=== PATIENT | male | born 1945 | race Caucasian/White ===

== ENCOUNTER 2021-02-15 13:05 | Inpatient (IN) | payer MEDICARE, SELFPAY ==
--- NOTE | ~2021-02-15 | CT_ITS ---
EXAMINATION: CT ABDOMEN AND PELVIS WITH CONTRAST CLINICAL INFORMATION: Kidney disease or renal impairment. COMPARISON: 05/03/2010 CT scan of the abdomen and pelvis. TECHNIQUE: Multidetector volumetric images were obtained from the superior aspect of the liver through the pubic symphysis following administration 85 mL of Omnipaque 350 intravenous contrast. Sagittal and coronal reformatted images were obtained on the technologist's workstation. Oral contrast: No This CT examination was performed using dose optimization techniques as appropriate, variously including the following: *Automated exposure control *Adjustment of mA and/or kV according to patient size (this includes techniques or standardized protocols for targeted exams where dose is matched to indication/reason for exam; i.e. extremities or head) *Use of iterative reconstruction technique DLP: 665 mGy-cm FINDINGS: LUNG BASES: Mild bibasilar atelectasis/scarring. No pleural or pericardial effusions. LIVER, GALLBLADDER, AND BILIARY TREE: No hepatic abnormality. Status post cholecystectomy. Mild to moderate intrahepatic and extrahepatic biliary ductal dilatation. The common hepatic duct measures up to 1.7 cm in maximum dimension. The common bile duct measures up to 1.4 cm in maximum dimension (image 38, series 6). There is tapering at the level of the pancreatic head. Several calcified densities are seen in the distal/intraluminal aspect of the common bile duct measuring up to 0.4 cm (image 46, series 6). These are seen extending to the level the ampulla. PANCREAS: Mild dilatation of the pancreatic duct up to 0.5 cm in the head without intraluminal abnormality. No significant dilatation is seen in the remainder the pancreas. No peripancreatic abnormality. SPLEEN: Unremarkable. ADRENAL GLANDS: Unremarkable. KIDNEYS AND URETERS: Unremarkable. BLADDER: Unremarkable. GASTROINTESTINAL TRACT: The stomach, small bowel and appendix are unremarkable. Mild diverticulosis is seen in the distal colon, most pronounced in the distal descending colon without surrounding abnormality. ABDOMINAL WALL: Small to moderate fat-containing umbilical hernia. LYMPH NODES: No lymphadenopathy. VASCULAR: Unremarkable. PELVIC VISCERA: Mild to moderate prostatomegaly with a volume of approximately 40 mL. OSSEOUS STRUCTURES: Mild to moderate multilevel degenerative changes, most pronounced at L4-L5. No suspicious abnormality. CT/CT abdomen pelvis w con IMPRESSION: 1. Mild to moderate intrahepatic and extra hepatic biliary ductal dilatation to the level the pancreatic head. There are several calcified intraluminal densities within the common bile duct suggesting choledocholithiasis. A definitive obstructing mass is not seen. Mild dilatation of the pancreatic duct does level may be secondary to the calculi as well. No other significant pancreatic abnormality. 2. Mild distal colonic diverticulosis without evidence for acute diverticulitis. 3. Small to moderate fat-containing umbilical hernia. 4. Mild to moderate prostatomegaly.
--- NOTE | ~2021-02-15 | FL_ITS ---
EXAMINATION: XR FLUOROSCOPY WITH IMAGES CLINICAL INFORMATION: ERCP for choledocholithiasis and dilatation of the bile ducts.. COMPARISON: CT scan abdomen and pelvis February 15, 2021 TECHNIQUE: Fluoroscopy performed by Dr. Bridges. Fluoroscopy time: 9.7 minutes DAP: 3.76 mGycm2 Images: 8 FINDINGS: Spot views show successful cannulation of the common duct. Contrast injected. The CBD is dilated. There are multiple filling defects consistent with choledocholithiasis. Balloon sweeps were made. There is stent was placed. See intraoperative report for full detail. FL/FL guidance in OR IMPRESSION: ERCP for choledocholithiasis. See intraoperative report for full detail.
[2021-02-15 14:15] VITALS: BP 140/71; PULSE 57; RESP 19; TEMP 36.6; O2SAT 98; BMI 25.1
--- NOTE | 2021-02-15 14:23 | ECG_ITS ---
Test Reason : ABD PAIN Blood Pressure : / mmHG Vent. Rate : 059 BPM Atrial Rate : 059 BPM P-R Int : 154 ms QRS Dur : 082 ms QT Int : 424 ms P-R-T Axes : 083 020 041 degrees QTc Int : 419 ms Sinus bradycardia with Premature atrial complexes Otherwise normal ECG No previous ECGs available Referred By: Generic ED Physician Electronically Signed By:ARNOLDO LALA
--- NOTE | 2021-02-15 18:23 | ED.GENADULT ---
HPI - General Adult General Chief complaint: General Medical Stated complaint: abd pain Time Seen by Provider: 02/15/21 15:49 Source: patient Mode of arrival: ambulatory Limitations: no limitations History of Present Illness HPI narrative: 75-year-old male presents with 2 days of left upper quadrant and mid abdominal pain. Noticed to be jaundiced earlier today. Has a history of partial cholecystectomy for history of gallbladder stones. Patient states to be nauseous, drank some fluids this morning but was unable to tolerate food. Onset (ago): day(s) (2) Location: abdomen Radiation: non-radiation Severity: moderate Severity scale (1-10): 7 Quality: aching Pain Consistency: constant Relieving factors: none Exacerbating factors: eating and movement Associated symptoms: fever/chills and loss of appetite Treatments prior to arrival: none Related Data Allergies Allergy/AdvReac Type Severity Reaction Status Date / Time No Known Allergies Allergy Unverified 11/04/20 13:09 Review of Systems Review of Systems: Constitutional: No Weight loss, No Fever, positive Chills, No Night Sweats, No Fatigue, No Malaise ENT/Mouth: No Hearing loss, No Ear Pain, No Nasal Congestion, No Sinus Pain, No Hoarseness, No sore throat, No Rhinorrhea, No Swallowing Difficulty Eyes: No Eye Pain, No Swelling, No Redness, No Foreign Body, No Discharge, No Vision Changes Cardiovascular: No Chest Pain, No SOB, No Dyspnea on Exertion, No Orthopnea, No Edema, No Palpitations Respiratory: No Cough, No Sputum, No Wheezing, No Smoke Exposure, No Dyspnea Gastrointestinal: Positive Nausea, no Vomiting, no Diarrhea, positive abdominal Pain, No Hematochezia, No Melena Genitourinary: no irregular bleeding, No Dysuria, No Urinary Frequency, No Hematuria, No Urinary Incontinence, No Urgency, No Flank Pain, No Urinary Flow Changes, No Hesitancy Musculoskeletal: No joint pain, No Myalgias, No Joint Swelling Skin: Positive jaundice, No Skin Lesions, No rash Neuro: No Weakness, No Numbness, No Paresthesias, No Loss of Consciousness, No Dizziness, No Headache Psych: No Anxiety/Panic, No Depression, No SI/HI/AH/VH, No Social Issues Heme/Lymph: No Bruising, No Bleeding,No Lymphadenopathy Endocrine: No Polyuria, No Polydipsia, No Temperature Intolerance Yes all other systems are reviewed and are negative [facility] Past Medical History Attestation statement: The following information was validated with the patient. Source: old records reviewed Social History Social History Advance Directives: No Physical Exam Vital Signs: Vital Signs: Last Vital Signs Temp 99.9 F 02/15/21 23:40 Pulse 68 02/15/21 23:40 Resp 16 02/15/21 23:40 BP 148/61 H 02/15/21 23:40 Pulse Ox 99 02/15/21 23:40 Body Mass Index 25.1 Appearance: Alert. Oriented X3. Moderate distress. Eyes: Pupils equal, round and reactive to light. Sclera slightly icteric ENT: Pharynx normal. Moist mucous membranes Neck: Normal inspection. Neck supple. CVS: Normal heart rate and rhythm. Pulses normal. Respiratory: No respiratory distress. Breath sounds normal. Abdomen: Soft and tender. Positive Gu[place]. Skin: Slightly jaundiced. Skin warm and dry. Normal skin turgor. Extremities: No lower extremity edema. Gait well balanced well coordinated. Neuro: No motor deficit. No sensory deficit. Cranial nerves 2-12 intact. Course Course Course Narrative: 75-year-old male presents with left upper and mid epigastric pain for approximately 48 hours. States that he noted to be a bit jaundiced over the past couple of days. Has had some nausea, but denies fevers, chills, and EtOH. Past medical history of partial cholecystectomy for prior gallstones. Will order 2 L of fluid, morphine, and CT of abdomen and pelvis with contrast. 8:14 p.m. labs pending draw. 11:[address] scan shows choledocholithiasis. Call out to Gastroenterology. 11:15 p.m. GI consult in the morning for ERCP plan is to admit to Medicine. Discussion with hospitalist, plan is to admit for choledocholithiasis. Ceftriaxone, Protonix, and morphine ordered time Consultations Consultation #1: Avery Time: 23:12 Consultation #2: Avinash Time: 23:15 Medical Decision Making Differential Diagnosis Differential Diagnosis: Pancreatitis, coli lithiasis, cholecystitis, hepatitis Medical Records Medical records reviewed: Yes I reviewed the patient's medical records. Lab Data Lab results reviewed: Yes I reviewed the patient's lab results. Result diagrams: 02/15/21 20:09 02/15/21 20:09 Labs: Lab Results 02/15/21 02/15/21 02/15/21 Range/Units 20:09 20:09 20:09 WBC 11.4 H (4.8-10.8) X10*3/uL RBC 5.21 (4.60-5.80) X10*6/uL Hgb 15.3 (14.0-18.0) g/dl Hct 43.6 (42-52) % MCV 83.7 (80-98) fL MCH 29.4 (27.0-33.0) pg MCHC 35.1 (31.0-36.0) g/dl RDW 13.2 (11.0-16.0) % Plt Count 240 (160-400) X10*3/uL MPV 11.1 (9.4-12.4) fL Immature Gran % (Auto) 0.3 (0.0-0.4) % Neut % (Auto) 80.0 H (45-73) % Lymph % (Auto) 9.5 L (20-40) % [place] % (Auto) 10.0 (2-11) % Eos % (Auto) 0.0 (0-4) % Baso % (Auto) 0.2 (0-2) % Lymph # (Auto) 1.1 L (1.2-4.9) X10*3/uL [place] # (Auto) 1.1 (0.1-1.2) X10*3/uL Eos # (Auto) 0.0 (0.0-0.4) X10*3/uL Baso # (Auto) 0.0 (0.0-0.2) X10*3/uL Abs Immat Gran (auto) 0.03 (0.00-0.03) X10*3/uL Absolute Neuts (auto) 9.1 H (2.0-8.3) X10*3/uL Absolute Nucleated RBC 0.000 (0.0-0.012) X10*3/uL Nucleated RBC % (auto) 0.0 (0.0-0.2) /100WBC Sodium 140 (135-145) mmol/L Potassium 4.0 (3.3-5.1) mmol/L Chloride 103 (96-108) mmol/L Carbon Dioxide 26 (22-29) mmol/L Anion Gap 15 (12-20) BUN 14 (9-16) mg/dL Creatinine 1.22 (0.5-1.4) mg/dL Estim Creat Clear Calc 51.5 Estimated GFR 58 Random Glucose 118 H (60-115) mg/dL Calcium 9.6 (8.4-10.2) mg/dL Total Bilirubin 10.2 H (0.0-1.0) mg/dL Direct Bilirubin 3.9 H (0.0-0.5) mg/dL AST 142 H (5-37) U/L ALT 176 H (0-40) U/L Alkaline Phosphatase 126 H (39-117) U/L Troponin I High Sens 6.0 (<3.5-35.0) ng/L Total Protein 7.6 (6.5-8.0) g/dL Albumin 4.3 (3.5-5.0) g/dL Lipase 230 H (8-78) U/L Urine Color Urine Appearance Urine pH (5.0-8.0) Ur Specific [place] (1.005-1.025) Urine Protein (NEG-TRACE) MG/DL Urine Glucose (UA) (NEG) MG/DL Urine Ketones (NEG) MG/DL Urine Blood (NEG) Urine Nitrite (NEG) Ur Leukocyte Esterase (NEG) Urine RBC (0) /HPF Urine WBC (0-4) /HPF Ur Squamous Epith Cells /LPF Urine Bacteria /LPF 02/15/21 Range/Units 22:22 WBC (4.8-10.8) X10*3/uL RBC (4.60-5.80) X10*6/uL Hgb (14.0-18.0) g/dl Hct (42-52) % MCV (80-98) fL MCH (27.0-33.0) pg MCHC (31.0-36.0) g/dl RDW (11.0-16.0) % Plt Count (160-400) X10*3/uL MPV (9.4-12.4) fL Immature Gran % (Auto) (0.0-0.4) % Neut % (Auto) (45-73) % Lymph % (Auto) (20-40) % [place] % (Auto) (2-11) % Eos % (Auto) (0-4) % Baso % (Auto) (0-2) % Lymph # (Auto) (1.2-4.9) X10*3/uL [place] # (Auto) (0.1-1.2) X10*3/uL Eos # (Auto) (0.0-0.4) X10*3/uL Baso # (Auto) (0.0-0.2) X10*3/uL Abs Immat Gran (auto) (0.00-0.03) X10*3/uL Absolute Neuts (auto) (2.0-8.3) X10*3/uL Absolute Nucleated RBC (0.0-0.012) X10*3/uL Nucleated RBC % (auto) (0.0-0.2) /100WBC Sodium (135-145) mmol/L Potassium (3.3-5.1) mmol/L Chloride (96-108) mmol/L Carbon Dioxide (22-29) mmol/L Anion Gap (12-20) BUN (9-16) mg/dL Creatinine (0.5-1.4) mg/dL Estim Creat Clear Calc Estimated GFR Random Glucose (60-115) mg/dL Calcium (8.4-10.2) mg/dL Total Bilirubin (0.0-1.0) mg/dL Direct Bilirubin (0.0-0.5) mg/dL AST (5-37) U/L ALT (0-40) U/L Alkaline Phosphatase (39-117) U/L Troponin I High Sens (<3.5-35.0) ng/L Total Protein (6.5-8.0) g/dL Albumin (3.5-5.0) g/dL Lipase (8-78) U/L Urine Color YELLOW Urine Appearance CLEAR Urine pH 6.0 (5.0-8.0) Ur Specific [place] <= 1.005 (1.005-1.025) Urine Protein NEG (NEG-TRACE) MG/DL Urine Glucose (UA) NEG (NEG) MG/DL Urine Ketones 5 (NEG) MG/DL Urine Blood 1+ H (NEG) Urine Nitrite NEG (NEG) Ur Leukocyte Esterase NEG (NEG) Urine RBC 1-4 (0) /HPF Urine WBC 1-4 (0-4) /HPF Ur Squamous Epith Cells TRACE /LPF Urine Bacteria TRACE /LPF Imaging Data CT scan - abdomen: Attestation: I personally reviewed and interpreted this imaging study as follows: Radiologist's impression: FINDINGS: LUNG BASES: Mild bibasilar atelectasis/scarring. No pleural or pericardial effusions.? LIVER, GALLBLADDER, AND BILIARY TREE: No hepatic abnormality. Status post cholecystectomy. Mild to moderate intrahepatic and extrahepatic biliary ductal dilatation. The common hepatic duct measures up to 1.7 cm in maximum dimension. The common bile duct measures up to 1.4 cm in maximum dimension (image 38, series 6). There is tapering at the level of the pancreatic head. Several calcified densities are seen in the distal/intraluminal aspect of the common bile duct measuring up to 0.4 cm (image 46, series 6). These are seen extending to the level the ampulla. PANCREAS: Mild dilatation of the pancreatic duct up to 0.5 cm in the head without intraluminal abnormality. No significant dilatation is seen in the remainder the pancreas. No peripancreatic abnormality.? SPLEEN: Unremarkable.? ADRENAL GLANDS: Unremarkable.? KIDNEYS AND URETERS: Unremarkable. BLADDER: Unremarkable.? GASTROINTESTINAL TRACT: The stomach, small bowel and appendix are unremarkable. Mild diverticulosis is seen in the distal colon, most pronounced in the distal descending colon without surrounding abnormality. ABDOMINAL WALL: Small to moderate fat-containing umbilical hernia. LYMPH NODES: No lymphadenopathy. VASCULAR: Unremarkable. PELVIC VISCERA: Mild to moderate prostatomegaly with a volume of approximately 40 mL. OSSEOUS STRUCTURES: Mild to moderate multilevel degenerative changes, most pronounced at L4-L5. No suspicious abnormality. CT/CT abdomen pelvis w con IMPRESSION: 1. Mild to moderate intrahepatic and extra hepatic biliary ductal dilatation to the level the pancreatic head. There are several calcified intraluminal densities within the common bile duct suggesting choledocholithiasis. A definitive obstructing mass is not seen. Mild dilatation of the pancreatic duct does level may be secondary to the calculi as well. No other significant pancreatic abnormality. 2. Mild distal colonic diverticulosis without evidence for acute diverticulitis. 3. Small to moderate fat-containing umbilical hernia. 4. Mild to moderate prostatomegaly. ECG Data Attestation: I personally reviewed and interpreted this ECG as follows: Prior ECG tracings: not available for review Interpretation: Vent. Rate : 059 BPM ? ? Atrial Rate : 059 BPM ?? P-R Int : 154 ms? QRS Dur : 082 ms ? ? QT Int : 424 ms ? ? ? P-R-T Axes : 083 020 041 degrees ?? QTc Int : 419 ms ? Sinus bradycardia with Premature atrial complexes Otherwise normal ECG No previous ECGs available DD/ [id number] Critical Care Time Critical Care Time Critical Care Time: Yes Total Critical Care Time: 45 Attestation: I have personally provided critical care time exclusive of time spent on separately billable procedures. Time includes review of laboratory data, radiology results, discussion with consultants, and monitoring for potential decompensation. Interventions were performed as documented. Discharge Plan Discharge Clinical Impression: Choledocholithiasis Patient Disposition: Admitted As Inpatient
[2021-02-15 20:26] LABS: MANUAL DIFF FLAG NO
[2021-02-15 20:27] LABS: Basophils Percent Auto 0.2 % (0-2); Hematocrit 43.6 % (42-52); Hemoglobin 15.3 g/dl (14.0-18.0); Imm Gran Abs Auto 0.03 X10*3/uL (0.00-0.03); Imm Gran Pct Auto 0.3 % (0.0-0.4); Lymphocytes Absolute Auto 1.1 X10*3/uL (1.2-4.9); Lymphocytes Percent Auto 9.5 % (20-40); Mean Corpuscular HGB Conc 35.1 g/dl (31.0-36.0); Mean Corpuscular Hemoglobin 29.4 pg (27.0-33.0); Mean Corpuscular Volume 83.7 fL (80-98); Mean Platelet Volume 11.1 fL (9.4-12.4); Monocytes Absolute Auto 1.1 X10*3/uL (0.1-1.2); Neutrophils Absolute Auto 9.1 X10*3/uL (2.0-8.3); Platelet Count 240 X10*3/uL (160-400); Red Blood Count 5.21 X10*6/uL (4.60-5.80); Red Cell Distribution Width 13.2 % (11.0-16.0); White Blood Count 11.4 X10*3/uL (4.8-10.8)
[2021-02-15 20:42] LABS: Alanine Aminotransferase 176 U/L (0-40); Albumin Level 4.3 g/dL (3.5-5.0); Alkaline Phosphatase 126 U/L (39-117); Anion Gap 15 (12-20); Aspartate Amino Transferase 142 U/L (5-37); Bilirubin Direct 3.9 mg/dL (0.0-0.5); Bilirubin Total 10.2 mg/dL (0.0-1.0); Blood Urea Nitrogen 14 mg/dL (9-16); Calcium 9.6 mg/dL (8.4-10.2); Carbon Dioxide 26 mmol/L (22-29); Chloride 103 mmol/L (96-108); Creatinine Clr Calc Pharmacy 51.5; Estimated Glomerular Filt Rate 58; Glucose Random 118 mg/dL (60-115); Lipase 230 U/L (8-78); Sodium 140 mmol/L (135-145); Total Protein 7.6 g/dL (6.5-8.0)
[2021-02-15] MEDS: 0.9 % Sodium Chloride 1,000 ML 999 ML IVCONT ×2 (21:03→22:29)
[2021-02-15 21:06] VITALS: RESP 16
--- NOTE | 2021-02-15 21:07 | PC.NURSE ---
NS UP AND RUNNING, DAUGHTER REFUSING MORPHINE AND ZOFRAN FOR PT ONLY WANTS PT TO HAVE NS BECAUSE OF DEHYDRATION. MORPHINE WITNESSED WASTE.
--- NOTE | 2021-02-15 21:27 | PC.NURSE ---
LABS RESULTED AND PT AWAITING FOR CT. NS UP AND RUNNING, SITE INTACT.
[2021-02-15] MEDS: iohexoL 350 MG/ML 100 ML INFUS..BTL IV (21:40)
[2021-02-15 22:00] VITALS: BP 142/57; PULSE 70; RESP 16; TEMP 37.6; O2SAT 99
[2021-02-15 22:28] LABS: Appearance Urine CLEAR; Color Urine YELLOW; Glucose Urine UA NEG (NEG); Leukocyte Esterase Urine NEG (NEG); Nitrite Urine NEG (NEG); Specific Gravity - Urine <= 1.005 (1.005-1.025); UACC Culture Trigger NO; Urine Blood 1+ (NEG); Urine Ketones 5 MG/DL (NEG); Urine Protein NEG (NEG-TRACE)
[2021-02-15 23:15] LABS: Bacteria Urine TRACE /LPF; Squamous Epithelial Cell Urine TRACE /LPF
[2021-02-15 23:40] VITALS: BP 148/61; PULSE 68; RESP 16; TEMP 37.7; O2SAT 99
[2021-02-16] VITALS (20 sets, daily range): BP systolic 113–149; BP diastolic 55–78; PULSE 51–77; RESP 15–18; TEMP 36.3–37.3; O2SAT 92–99
[2021-02-16 00:11] LABS: COVID-19 Test Negative (Negative)
[2021-02-16] MEDS: Pantoprazole Sodium 40 MG/10 ML VIAL IVPUSH (00:28)
[2021-02-16] MEDS: cefTRIAXone sodium 1 GM in 0.9 % Sodium Chloride 50 ML IV ×2 (00:29→22:26)
--- NOTE | 2021-02-16 00:56 | PC.NURSE ---
hospitalist in room for eval. pt medicated as per emar. pt's daughter refusing pt to have any doses of morphine which was witnessed waste by Zamzam Saleh RN. pt being admitted and awaiting for further orders.
[2021-02-16] MEDS: metroNIDAZOLE/NS 500 MG/100 ML PIGGYBACK 100 MG IV ×3 (01:00→22:33)
[2021-02-16] MEDS: Lactated Ringers 1,000 ML 80 ML IVCONT ×2 (01:47→20:28)
--- NOTE | 2021-02-16 02:30 | PC.NURSE ---
CALL YU IN ROOM IS NOT WORKING AND WAS REMOVED FROM WALL. DAUGHTER CONCERNED ABOUT LEAVING HER FATHER W/O A CALL YU. PT MOVED TO ROOM #18 FOR SAFETY. DAUGHTER IN RECLINER CHAIR FOR COMFORT. PT MEDICATED PER EMAR. PT REMAINS ALERT, RESPIRATIONS EASY, N/L. SKIN W/D. PT IN NAD. PT AWAITING FOR ROOM ASSIGNMENT.
--- NOTE | 2021-02-16 06:34 | PM.IMHP ---
History of Present Illness Date of Service: 02/16/21 Chief Complaint: Abdominal pain 75-year-old male with no significant past medical history who presents to the hospital with complaints of abdominal pain that started about 1 day ago. Patient reports that he was at home when he started having epigastric pain radiating to the right upper quadrant associated with nausea, pain is 8/10, constant, in worsens with eating and drinking food, improved with pain medication given in the ED. associated with dark urine, jaundice. Patient denies any chest pain, no shortness of breath, no headache or change in vision, no palpitations. No urinary symptoms and no lower extremity edema. No weakness numbness or tingling. On arrival to the ED patient hemodynamically stable with no significant abnormal vitals except for a temp of 99.9? Labs are significant for WBC count of 11.4, total bili of 10.2, direct bili of 3.9, AST of 142, ALT of 176, alk-phos of 126, lipase of 230, UA negative. COVID-[address] shows [id number] intrahepatic and extrahepatic biliary ductal dilatation to the level of the pancreas head. There are several calcified intraluminal densities within the common bile duct suggesting choledocholithiasis. Mild dilatation of the pancreatic duct at this level may be secondary to the calculus as well. Diverticulosis with no diverticulitis. Gastroenterology was consulted, patient will be admitted for further management and ERCP in a.m. Review of Systems Review of Systems: Yes all other systems are reviewed and are negative [facility] Medical History (Updated 02/16/21 @ 06:44 by Jose Da Silva MD) No pertinent past medical history Pertinent family history: Denies any family history Surgical History History of cholecystectomy Social History Advance Directives: No Meds Allergies Allergy/AdvReac Type Severity Reaction Status Date / Time No Known Allergies Allergy Unverified 11/04/20 13:09 Active Medications: Current Medications Acetaminophen (Acetaminophen 325 Mg Tablet) 650 mg PO Q6H PRN PRN Reason: Pain, Mild (Pain Scale 1-3) Docusate Sodium (Docusate Sodium 100 Mg Capsule) 100 mg PO DAILY PRN PRN Reason: Constipation Ceftriaxone Sodium 1 gm/ (Sodium Chloride) 50 mls @ 100 mls/hr IV Q24H [facility] Metronidazole (Flagyl) 500 mg in 100 mls @ 100 mls/hr IV Q8H [facility] Last Admin: 02/16/21 05:52 Dose: 100 mls/hr Documented by: Lactated Ringer's (Lr) 1,000 mls @ 80 mls/hr IVCONT .[id number] [facility] Last Infusion: 02/16/21 03:52 Dose: Infused Documented by: Morphine Sulfate (Morphine Sulfate 4 Mg/Ml Cartridge) 4 mg IVPUSH Q4H PRN; Protocol PRN Reason: Pain, Severe (Pain Scale 7-10) Ondansetron HCl (Ondansetron Hcl 4 Mg/2 Ml Vial) 4 mg IVPUSH Q8H PRN PRN Reason: Nausea and Vomiting Oxycodone HCl (Oxycodone Hcl Immed Release 5 Mg Tablet) 5 mg PO Q4H PRN PRN Reason: Pain, Severe (Pain Scale 7-10) Sodium Chloride (0.9 % Sodium Chloride Flush 3 Ml Syringe) 3 ml IVFLUSH QSHIFT [facility] Last Admin: 02/16/21 03:43 Dose: Not Given Documented by: Home Medications Medication Instructions Recorded Confirmed Last Taken Type No Known Home Meds 02/16/21 02/16/21 Unknown History Physical Exam Vital Signs and Narrative: Vital Signs: Last Vital Signs Temp 98.5 F 02/16/21 05:49 Pulse 62 02/16/21 05:49 Resp 16 02/16/21 05:49 BP 144/65 H 02/16/21 05:49 Pulse Ox 97 02/16/21 05:49 Body Mass Index 25.1 Const: General: cooperative and no acute distress Orientation/consciousness: patient oriented x3 Eyes: General: appearance normal, both eyes and all related structures Pupils: Equal, round and reactive pupils present Resp: Effort & Inspection: normal respiratory effort Auscultation: clear to auscultation bilaterally Cardio: Rate: regular rate Rhythm: regular rhythm GI: Other: Epigastric as well as right upper quadrant tenderness on palpation, no rebound or guarding Palpation (GI): Soft to palpation Auscultation: normal bowel sounds Skin: General skin exam: no rashes or lesions noted Neuro: General: patient oriented x3 Cranial nerves: Yes Equal, round and reactive pupils present Cognition (Neuro): normal cognition Extrem: General: Yes normal to inspection and Yes no pedal edema Results Labs CBC and Chem 7: 02/15/21 20:09 02/15/21 20:09 Labs: Laboratory Results - last 24 hr 02/15/21 02/15/21 02/15/21 20:09 20:09 20:09 MCV 83.7 MCH 29.4 MCHC 35.1 RDW 13.2 Plt Count 240 MPV 11.1 Immature Gran % (Auto) 0.3 Neut % (Auto) 80.0 H Lymph % (Auto) 9.5 L [place] % (Auto) 10.0 Eos % (Auto) 0.0 Baso % (Auto) 0.2 Lymph # (Auto) 1.1 L [place] # (Auto) 1.1 Eos # (Auto) 0.0 Baso # (Auto) 0.0 Abs Immat Gran (auto) 0.03 Absolute Neuts (auto) 9.1 H Absolute Nucleated RBC 0.000 Nucleated RBC % (auto) 0.0 Anion Gap 15 Estim Creat Clear Calc 51.5 Estimated GFR 58 Random Glucose 118 H Calcium 9.6 Total Bilirubin 10.2 H Direct Bilirubin 3.9 H AST 142 H ALT 176 H Alkaline Phosphatase 126 H Troponin I High Sens 6.0 Total Protein 7.6 Albumin 4.3 Lipase 230 H Urine Color Urine Appearance Urine pH Ur Specific [place] Urine Protein Urine Glucose (UA) Urine Ketones Urine Blood Urine Nitrite Ur Leukocyte Esterase Urine RBC Urine WBC Ur Squamous Epith Cells Urine Bacteria COVID-19 (ART) COVID-19 Clin Com 02/15/21 02/15/21 22:22 23:52 MCV MCH MCHC RDW Plt Count MPV Immature Gran % (Auto) Neut % (Auto) Lymph % (Auto) [place] % (Auto) Eos % (Auto) Baso % (Auto) Lymph # (Auto) [place] # (Auto) Eos # (Auto) Baso # (Auto) Abs Immat Gran (auto) Absolute Neuts (auto) Absolute Nucleated RBC Nucleated RBC % (auto) Anion Gap Estim Creat Clear Calc Estimated GFR Random Glucose Calcium Total Bilirubin Direct Bilirubin AST ALT Alkaline Phosphatase Troponin I High Sens Total Protein Albumin Lipase Urine Color YELLOW Urine Appearance CLEAR Urine pH 6.0 Ur Specific [place] <= 1.005 Urine Protein NEG Urine Glucose (UA) NEG Urine Ketones 5 Urine Blood 1+ H Urine Nitrite NEG Ur Leukocyte Esterase NEG Urine RBC 1-4 Urine WBC 1-4 Ur Squamous Epith Cells TRACE Urine Bacteria TRACE COVID-19 (ART) Negative COVID-19 Clin Com See Note Imaging Radiologist's Impressions: Impressions Abdomen/Pelvis CT 02/15/21 18:33 IMPRESSION: 1. Mild to moderate intrahepatic and extra hepatic biliary ductal dilatation to the level the pancreatic head. There are several calcified intraluminal densities within the common bile duct suggesting choledocholithiasis. A definitive obstructing mass is not seen. Mild dilatation of the pancreatic duct does level may be secondary to the calculi as well. No other significant pancreatic abnormality. 2. Mild distal colonic diverticulosis without evidence for acute diverticulitis. 3. Small to moderate fat-containing umbilical hernia. 4. Mild to moderate prostatomegaly. Assessment and Plan (1) Choledocholithiasis: Status: Acute (2) Cholangitis: Status: Deleted (3) Abdominal pain: Status: Acute 75-year-old male with no significant past medical history presents to the hospital with complaints of abdominal pain found to have choledocholithiasis # abdominal pain - secondary to choledocholithiasis most likely cholangitis - patient with jaundice, low-grade fever as well as leukocytosis - has evidence of the intrahepatic and extrahepatic biliary ductal dilatation as well as choledocholithiasis seen on CT scan - will start on IV antibiotics - make NPO for ERCP in the morning - gastroenterology consulted # cholangitis -tree at all fever, jaundice, abdominal pain, has leukocytosis - will start him on IV antibiotics - ERCP in a.m. DVT prophylaxis: SCDs Quality Stroke Does the patient have a stroke diagnosis?: No VTE Prior VTE?: No VTE Risk Level:: Medical - moderate - high VTE Device Contraindication: N/A - Device Ordered VTE Drug Contraindication: Treatment Not Indicated
[2021-02-16 07:03] LABS: MANUAL DIFF FLAG NO
[2021-02-16 07:06] LABS: Basophils Percent Auto 0.1 % (0-2); Eosinophils Percent Auto 0.2 % (0-4); Hematocrit 39.8 % (42-52); Hemoglobin 13.6 g/dl (14.0-18.0); Imm Gran Abs Auto 0.04 X10*3/uL (0.00-0.03); Imm Gran Pct Auto 0.5 % (0.0-0.4); Lymphocytes Absolute Auto 0.9 X10*3/uL (1.2-4.9); Lymphocytes Percent Auto 9.7 % (20-40); Mean Corpuscular HGB Conc 34.2 g/dl (31.0-36.0); Mean Corpuscular Hemoglobin 28.9 pg (27.0-33.0); Mean Corpuscular Volume 84.5 fL (80-98); Mean Platelet Volume 11.3 fL (9.4-12.4); Monocytes Absolute Auto 1.1 X10*3/uL (0.1-1.2); Monocytes Percent Auto 12.4 % (2-11); Neutrophils Absolute Auto 6.8 X10*3/uL (2.0-8.3); Neutrophils Percent Auto 77.1 % (45-73); Platelet Count 190 X10*3/uL (160-400); Red Blood Count 4.71 X10*6/uL (4.60-5.80); Red Cell Distribution Width 13.2 % (11.0-16.0); White Blood Count 8.9 X10*3/uL (4.8-10.8)
[2021-02-16] MEDS: 0.9 % Sodium Chloride Flush 3 ML SYRINGE IVFLUSH (07:32)
[2021-02-16 07:34] LABS: Anion Gap 14 (12-20); Blood Urea Nitrogen 12 mg/dL (9-16); Calcium 8.5 mg/dL (8.4-10.2); Carbon Dioxide 23 mmol/L (22-29); Chloride 105 mmol/L (96-108); Creatinine Clr Calc Pharmacy 52.8; Estimated Glomerular Filt Rate 59; Glucose Random 103 mg/dL (60-115); Potassium 3.9 mmol/L (3.3-5.1); Sodium 138 mmol/L (135-145)
--- NOTE | 2021-02-16 07:56 | PC.NURSE ---
Pt resting comfortably on stretcher, denies pain or discomfort. LR continues at 80ml/hr. Skin and sclera noted to be sl jaundiced. Daughter at bedside.
--- NOTE | 2021-02-16 09:37 | HO.ANESPROP2 ---
[facility] Active Problems Active Problems: All Active Problems (Updated 02/16/21 @ 06:44 by Jose Da Silva MD) Abdominal pain (Acute) Cholangitis (Acute) Choledocholithiasis (Acute) Past Medical History Medical History (Updated 02/16/21 @ 06:44 by Jose Da Silva MD) No pertinent past medical history Family History Family history of problems with anesthesia: No Surgical History Surgical History History of cholecystectomy History of Problems with Anesthesia: No Meds Allergies Allergy/AdvReac Type Severity Reaction Status Date / Time No Known Allergies Allergy Unverified 11/04/20 13:09 Active Medications: Current Medications Acetaminophen (Acetaminophen 325 Mg Tablet) 650 mg PO Q6H PRN PRN Reason: Pain, Mild (Pain Scale 1-3) Docusate Sodium (Docusate Sodium 100 Mg Capsule) 100 mg PO DAILY PRN PRN Reason: Constipation Ceftriaxone Sodium 1 gm/ (Sodium Chloride) 50 mls @ 100 mls/hr IV Q24H [facility] Metronidazole (Flagyl) 500 mg in 100 mls @ 100 mls/hr IV Q8H [facility] Last Infusion: 02/16/21 07:33 Dose: Infused Documented by: Lactated Ringer's (Lr) 1,000 mls @ 80 mls/hr IVCONT .[id number] [facility] Last Infusion: 02/16/21 03:52 Dose: Infused Documented by: Lactated Ringer's (Lr) 500 mls @ 20 mls/hr IVCONT .Q24H [facility] Morphine Sulfate (Morphine Sulfate 4 Mg/Ml Cartridge) 4 mg IVPUSH Q4H PRN; Protocol PRN Reason: Pain, Severe (Pain Scale 7-10) Ondansetron HCl (Ondansetron Hcl 4 Mg/2 Ml Vial) 4 mg IVPUSH Q8H PRN PRN Reason: Nausea and Vomiting Oxycodone HCl (Oxycodone Hcl Immed Release 5 Mg Tablet) 5 mg PO Q4H PRN PRN Reason: Pain, Severe (Pain Scale 7-10) Sodium Chloride (0.9 % Sodium Chloride Flush 3 Ml Syringe) 3 ml IVFLUSH QSHIFT [facility] Last Admin: 02/16/21 07:32 Dose: 3 ml Documented by: Home Medications Medication Instructions Recorded Confirmed Last Taken Type No Known Home Meds 10/05/21 10/05/21 Unknown History Exam Exam Date and Time: February 16, 2021 0937 Height,Weight and Vital Signs: Height 5 ft 9 in Weight 77.111 kg Last Vital Signs Temp 98.5 F 02/16/21 05:49 Pulse 77 02/16/21 07:31 Resp 16 02/16/21 07:31 BP 147/70 H 02/16/21 07:31 Pulse Ox 95 02/16/21 07:31 Pertinent Lab Results Pertinent Lab Results: Laboratory Tests 02/15/21 02/15/21 02/15/21 20:09 20:09 20:09 WBC 11.4 H RBC 5.21 Hgb 15.3 Hct 43.6 MCV 83.7 MCH 29.4 MCHC 35.1 RDW 13.2 Plt Count 240 MPV 11.1 Immature Gran % (Auto) 0.3 Neut % (Auto) 80.0 H Lymph % (Auto) 9.5 L [place] % (Auto) 10.0 Eos % (Auto) 0.0 Baso % (Auto) 0.2 Lymph # (Auto) 1.1 L [place] # (Auto) 1.1 Eos # (Auto) 0.0 Baso # (Auto) 0.0 Abs Immat Gran (auto) 0.03 Absolute Neuts (auto) 9.1 H Absolute Nucleated RBC 0.000 Nucleated RBC % (auto) 0.0 Sodium 140 Potassium 4.0 Chloride 103 Carbon Dioxide 26 Anion Gap 15 BUN 14 Creatinine 1.22 Estim Creat Clear Calc 51.5 Estimated GFR 58 Random Glucose 118 H Calcium 9.6 Total Bilirubin 10.2 H Direct Bilirubin 3.9 H AST 142 H ALT 176 H Alkaline Phosphatase 126 H Troponin I High Sens 6.0 Total Protein 7.6 Albumin 4.3 Lipase 230 H Urine Color Urine Appearance Urine pH Ur Specific [place] Urine Protein Urine Glucose (UA) Urine Ketones Urine Blood Urine Nitrite Ur Leukocyte Esterase Urine RBC Urine WBC Ur Squamous Epith Cells Urine Bacteria COVID-19 (ART) COVID-19 Clin Com 02/15/21 02/15/21 02/16/21 22:22 23:52 06:53 WBC 8.9 RBC 4.71 Hgb 13.6 L Hct 39.8 L MCV 84.5 MCH 28.9 MCHC 34.2 RDW 13.2 Plt Count 190 MPV 11.3 Immature Gran % (Auto) 0.5 H Neut % (Auto) 77.1 H Lymph % (Auto) 9.7 L [place] % (Auto) 12.4 H Eos % (Auto) 0.2 Baso % (Auto) 0.1 Lymph # (Auto) 0.9 L [place] # (Auto) 1.1 Eos # (Auto) 0.0 Baso # (Auto) 0.0 Abs Immat Gran (auto) 0.04 H Absolute Neuts (auto) 6.8 Absolute Nucleated RBC 0.000 Nucleated RBC % (auto) 0.0 Sodium Potassium Chloride Carbon Dioxide Anion Gap BUN Creatinine Estim Creat Clear Calc Estimated GFR Random Glucose Calcium Total Bilirubin Direct Bilirubin AST ALT Alkaline Phosphatase Troponin I High Sens Total Protein Albumin Lipase Urine Color YELLOW Urine Appearance CLEAR Urine pH 6.0 Ur Specific [place] <= 1.005 Urine Protein NEG Urine Glucose (UA) NEG Urine Ketones 5 Urine Blood 1+ H Urine Nitrite NEG Ur Leukocyte Esterase NEG Urine RBC 1-4 Urine WBC 1-4 Ur Squamous Epith Cells TRACE Urine Bacteria TRACE COVID-19 (ART) Negative COVID-19 Clin Com See Note 02/16/21 06:53 WBC RBC Hgb Hct MCV MCH MCHC RDW Plt Count MPV Immature Gran % (Auto) Neut % (Auto) Lymph % (Auto) [place] % (Auto) Eos % (Auto) Baso % (Auto) Lymph # (Auto) [place] # (Auto) Eos # (Auto) Baso # (Auto) Abs Immat Gran (auto) Absolute Neuts (auto) Absolute Nucleated RBC Nucleated RBC % (auto) Sodium 138 Potassium 3.9 Chloride 105 Carbon Dioxide 23 Anion Gap 14 BUN 12 Creatinine 1.19 Estim Creat Clear Calc 52.8 Estimated GFR 59 Random Glucose 103 Calcium 8.5 D Total Bilirubin Direct Bilirubin AST ALT Alkaline Phosphatase Troponin I High Sens Total Protein Albumin Lipase Urine Color Urine Appearance Urine pH Ur Specific [place] Urine Protein Urine Glucose (UA) Urine Ketones Urine Blood Urine Nitrite Ur Leukocyte Esterase Urine RBC Urine WBC Ur Squamous Epith Cells Urine Bacteria COVID-19 (ART) COVID-19 Clin Com Airway Mallampati Class: II TM Dist: >3cm Neck ROM: Full Heart: rrr Lungs: cta Assessment and Plan Assessment Anesthesia Assessment: Anesthesia Plan Discussed and Chart Reviewed Final Anesthetic Review Family History of Problems with Anesthesia: No History of Problems with Anesthesia: No NPO: No ASA Class: III Final Preanesthetic Review: No Changes in Pt Med Stat, Meds/Allgs Chart Reviewed and Consent Obtained/Reviewed Patient Risk: Intermediate Procedure Risk: Intermediate Anesthetic Plan Anesthetic Plan: MAC: Disposition: Standard PACU
[2021-02-16] MEDS: Lactated Ringers 500 ML 20 ML IVCONT (09:44)
--- NOTE | 2021-02-16 10:26 | MHC.SHP ---
Pre-Procedural Eval Section A Date of Service: 02/16/21 The patient is an INPATIENT: Yes Changes since office visit: No Cold of Flu in the past 2 weeks, No New Medical Problems, No Changes in Medication and No Patient answered all questions The History & Physical has been completed within 30 days and I have reviewed it.: Yes Section B Chief Complaint: Cholangitis, Choledocholithiasis Allergies: Allergies Allergy/AdvReac Type Severity Reaction Status Date / Time No Known Allergies Allergy Unverified 11/04/20 13:09 Plan I have reviewed the history and physical and performed a pertinent physical examination on my patient. No changes have occurred unless specified.
--- NOTE | 2021-02-16 12:11 | PM.OP ---
Brief Operative Note Date of Service: 02/16/21 Pre-op diagnosis: CBD stones Post-op diagnosis: same Procedure: ERCP Surgeon: Efrain Bridges Anesthesia: MAC Was an Customer Security Clerk used for this Procedure?: No Estimated blood loss (mL): 0 Pathology: none sent Condition: stable Disposition: PACU
--- NOTE | 2021-02-16 12:12 | PM.EVENT ---
Event Note Date of Service: 02/16/21 Event Note: GI consult/procedure note Pt seen and examined, full note dictated. ERCP shows multiple cbd stones. Purulent draiinage c/w cholangitis noted. sphnicterotomy done, multiple stones and sludge removed with balloons. large 14-18 mm stone could not be removed. 10F 7 cm stent placed. Rec: follow lfts cont iv abx for cholangitis repeat ERCP with lithotripsy at tertiary care center.
--- NOTE | 2021-02-16 12:40 | OP_ITS ---
SURGEON: Efrain Bridges MD INDICATIONS: Common bile duct stones. PREOPERATIVE DIAGNOSIS: POSTOPERATIVE DIAGNOSIS: PROCEDURE PERFORMED: ERCP with sphincterotomy, stone extraction, and stent placement. ESTIMATED BLOOD LOSS: COMPLICATIONS: ANESTHESIA: ASSISTANTS: SPECIMENS: MEDICATIONS: Monitored anesthesia care. DESCRIPTION OF PROCEDURE: History and physical performed. The risks and benefits of the procedure were explained to the patient. Informed consent was obtained. The patient was placed in the prone position with a wedge under the right shoulder. The Olympus therapeutic duodenoscope was introduced into the esophagus, stomach, and duodenum. Examination was performed and the scope was removed. He tolerated the procedure well and was taken to recovery area in stable condition. FINDINGS: ENDOSCOPY: Limited examination of the esophagus, stomach, and duodenum was within normal limits. The major papilla appeared normal. A guidewire and sphincterotome were passed into the common bile duct with no immediate difficulty. Injection of contrast showed multiple filling defects and dilation of the common hepatic duct to approximately 18 to 20 mm. Purulent biliary drainage was noted with injection of contrast consistent with cholangitis. A sphincterotomy was performed to approximately 10 to 12 mm with no complications. Next, a balloon extraction catheter was used to extract multiple stones, however at least one stone could not be removed, measuring approximately 15 to 18 mm. Next, a 10-Polish 7 cm straight biliary stent was placed with no immediate complications and excellent drainage of contrast material. Cholangiography through the stent showed the stent to be in good position. No pancreatogram was attempted or obtained. IMPRESSION: 1. Common bile duct stones. 2. Cholangitis. RECOMMENDATIONS: 1. Continue antibiotics. 2. Monitor liver function tests/wbc.. 3. The patient will be referred to a tertiary care center for electrohydraulic/mechanical lithotripsy for the large stone. This can be done as an outpatient unless he does not improve clinically. MD PEDRITO Colby/EARLE / [phone] MTDD
--- NOTE | 2021-02-16 19:20 | CONS_ITS ---
DATE OF SERVICE: 02/16/2021 REFERRING PHYSICIAN: David Adler MD REASON FOR CONSULTATION: Common bile duct stones and jaundice. HISTORY OF PRESENT ILLNESS: The patient is a pleasant 75-year-old man, who was admitted to the hospital after presenting to the emergency room with complaints of abdominal pain. The pain began the day before admission and was worse with eating. The pain was in the epigastric area with radiation to the right upper quadrant and associated nausea. He denies fevers, but did feel slightly chilled. He also noticed that his urine became dark and his eyes were somewhat yellow. The pain was worse with eating. He was evaluated in the emergency department, where laboratory studies showed a total bilirubin elevated at 10.2 with transaminases in the mid 100s and a mild alkaline phosphatase elevation. White count was also elevated to 11.4. He was given IV antibiotics and imaging was undertaken with CT scanning, which is interpreted as showing dilation of the common hepatic duct to 17 mm with common bile duct at 14 mm with tapering at the pancreatic head and calcified densities in the distal common bile duct suggestive of stones. These were initially measured at 0.4 cm, but on review with Dr. Pascal, the largest stone seems to measure approximately 18 mm. There was mild dilation of the pancreatic duct, but no evidence of pancreatic inflammatory change. He did have a mild elevation of his serum lipase at 230, but at the time he is seen in short-stay surgery, he has no complaints of abdominal pain. He does recall undergoing cholecystectomy approximately a year and a half ago. He thinks this may have been a partial cholecystectomy due to inflammation, but the records are not available. PAST MEDICAL HISTORY: 1. Cholecystectomy. 2. Hearing impairment. 3. Umbilical hernia. 4. Varicose veins. CURRENT MEDICATIONS: His current medication list is reviewed in the chart. ALLERGIES: MORPHINE. FAMILY HISTORY: This is reviewed with the patient and is noncontributory. SOCIAL HISTORY: There is no current tobacco, alcohol, or substance abuse. REVIEW OF SYSTEMS: SKIN: No pruritus. HEENT: Negative. CARDIOPULMONARY: He denies shortness of breath or chest pain. GASTROINTESTINAL: As above. GENITOURINARY: Negative. NEUROPSYCHIATRIC: Negative. PHYSICAL EXAMINATION: GENERAL: Reveals a pleasant male, lying comfortably in bed. VITAL SIGNS: Reviewed in electronic medical record and are stable. SKIN: Anicteric. HEENT: Shows no scleral icterus. NECK: Without lymphadenopathy or thyromegaly. LUNGS: Clear. HEART: Shows regular rate and rhythm. S1, S2. No murmur. ABDOMEN: Soft without focal masses or tenderness. Bowel sounds are present. No organomegaly is noted. EXTREMITIES: Without edema. LABORATORY DATA: Laboratory data and CT scanning are reviewed as above. IMPRESSION: Common bile duct stones with jaundice. I have recommended that he undergo ERCP. He is being covered with antibiotics for his elevated white count and possible underlying cholangitis. I have discussed risks and benefits of the procedure with him. He understands these and agrees to proceed. MD PEDRITO Colby/EARLE / [phone]
[2021-02-17 03:22] VITALS: BP 138/65; PULSE 51; RESP 16; TEMP 36.5; O2SAT 98
[2021-02-17] MEDS: metroNIDAZOLE/NS 500 MG/100 ML PIGGYBACK 100 MG IV ×3 (05:44→21:51)
[2021-02-17 05:48] LABS: Hematocrit 35.5 % (42-52); Hemoglobin 12.4 g/dl (14.0-18.0); Mean Corpuscular HGB Conc 34.9 g/dl (31.0-36.0); Mean Corpuscular Hemoglobin 29.5 pg (27.0-33.0); Mean Corpuscular Volume 84.5 fL (80-98); Mean Platelet Volume 11.6 fL (9.4-12.4); Platelet Count 157 X10*3/uL (160-400); Red Cell Distribution Width 13.3 % (11.0-16.0); White Blood Count 7.2 X10*3/uL (4.8-10.8)
[2021-02-17 06:23] LABS: Alanine Aminotransferase 89 U/L (0-40); Albumin Level 3.3 g/dL (3.5-5.0); Alkaline Phosphatase 91 U/L (39-117); Anion Gap 11 (12-20); Aspartate Amino Transferase 50 U/L (5-37); Bilirubin Direct 4.4 mg/dL (0.0-0.5); Bilirubin Total 8.4 mg/dL (0.0-1.0); Blood Urea Nitrogen 13 mg/dL (9-16); Calcium 8.6 mg/dL (8.4-10.2); Carbon Dioxide 27 mmol/L (22-29); Chloride 108 mmol/L (96-108); Creatinine Clr Calc Pharmacy 58.7; Estimated Glomerular Filt Rate > 60; Glucose Fasting 119 mg/dL (60-99); Sodium 142 mmol/L (135-145); Total Protein 5.9 g/dL (6.5-8.0)
[2021-02-17 07:14] VITALS: BP 129/58; PULSE 48; RESP 18; TEMP 36.6; O2SAT 98
--- NOTE | 2021-02-17 09:46 | HO.POSTANES ---
Post Anesthesia Evaluation Post Anesthesia Evaluation Vital Signs: Vital Signs Temp Pulse Resp BP Pulse Ox 02/17/21 07:14 97.8 F 48 L 18 129/58 L 98 02/17/21 03:22 97.7 F 51 16 138/65 98 02/16/21 23:27 98.3 F 52 15 138/73 97 Anesthesia: General Endotracheal-GETA Mental Status: Awake Pain Control: Satisfactory Nausea/Vomiting: None Hydration: Adequate Anesthesia-Related Issues: No Anes. Related Issues
--- NOTE | 2021-02-17 10:20 | MHC.CM.PN ---
EMR REVIEWED, CM MET W/PT WHO REPORTS IS STILL WORKING, INDEPENDENT W/ALL CARE, NO DME AND NO HOME SERVICES, PT CURRENTLY DECLINING HOME SERVICES AND DOES NOT FEEL HE NEEDS ASSISTANCE AT HOME, PT HAS DTR WHO CAN PROVIDE ANY ASSISTANCE PT MAY NEED, PT VERIFIES PCP IS TAI JONES AND REPORTS HIS HCP IS HIS DTR TRACEY ALMODOVAR [phone], COPY HAS BEEN REQUESTED. D/C PLAN HOME NO SERVICES, DTR FOR TRANSPORT
[2021-02-17 11:58] VITALS: BP 165/71; PULSE 56; RESP 18; TEMP 36.2; O2SAT 98
[2021-02-17] MEDS: Lactated Ringers 1,000 ML 80 ML IVCONT ×2 (12:38→12:49)
--- NOTE | 2021-02-17 14:31 | HO.PM.IMPN ---
Subjective Subjective Date of Service: 02/17/21 Interval History: Patient feels better less abdominal pain, tolerating diet with no nausea vomiting no fever chills, no other acute issues overnight. Review of Systems General no headache ,no dizziness no fever chills. CVS no chest pain, no palpitation. Respiratory no cough no sob. Gastrointestinal no nausea no vomiting, mild abdominal pain Physical Exam Vital Signs: Vital Signs: Last Vital Signs Temp 97.1 F 02/17/21 11:58 Pulse 56 02/17/21 11:58 Resp 18 02/17/21 11:58 BP 165/71 H 02/17/21 11:58 Pulse Ox 98 02/17/21 11:58 Body Mass Index 25.1 General alert oriented x3, no acute distress. Neck supple no JVD. CVS regular rate rhythm, Respiratory lungs clear to auscultation, no respiratory distress Gastrointestinal abdomen soft, mild mid abdominal tenderness, bowel sounds audible, no guarding , no rigidity. Extremities no edema. Neuro nonfocal , speech clear. Hard of hearing Skin no rash Objective Data Active Medications Acetaminophen (Acetaminophen 325 Mg Tablet) 650 mg PO Q6H PRN PRN Reason: Pain, Mild (Pain Scale 1-3) Docusate Sodium (Docusate Sodium 100 Mg Capsule) 100 mg PO DAILY PRN PRN Reason: Constipation Fentanyl (Fentanyl Citrate/Pf 100 Mcg/2 Ml Vial) 50 mcg IVPUSH Q5M PRN; Protocol PRN Reason: Pain, Severe (Pain Scale 7-10) Ceftriaxone Sodium 1 gm/ (Sodium Chloride) 50 mls @ 100 mls/hr IV Q24H [facility] Last Infusion: 02/16/21 23:04 Dose: 0 mls/hr Documented by: AGAPITO Metronidazole (Flagyl) 500 mg in 100 mls @ 100 mls/hr IV Q8H [facility] Last Infusion: 02/17/21 07:01 Dose: 0 mls/hr Documented by: AGAPITO Lactated Ringer's (Lr) 1,000 mls @ 80 mls/hr IVCONT .[id number] [facility] Last Infusion: 02/17/21 12:49 Dose: 80 mls/hr Documented by: MICHAEL Promethazine HCl 12.5 mg/ (Sodium Chloride) 50.5 mls @ 202 mls/hr IV ONCE PRN PRN Reason: Nausea and Vomiting Morphine Sulfate (Morphine Sulfate 4 Mg/Ml Cartridge) 4 mg IVPUSH Q4H PRN; Protocol PRN Reason: Pain, Severe (Pain Scale 7-10) Ondansetron HCl (Ondansetron Hcl 4 Mg/2 Ml Vial) 4 mg IVPUSH Q8H PRN PRN Reason: Nausea and Vomiting Oxycodone HCl (Oxycodone Hcl Immed Release 5 Mg Tablet) 5 mg PO Q4H PRN PRN Reason: Pain, Severe (Pain Scale 7-10) Sodium Chloride (0.9 % Sodium Chloride Flush 3 Ml Syringe) 3 ml IVFLUSH QSHIFT [facility] Last Admin: 02/17/21 07:14 Dose: Not Given Documented by: LEANDRO Non-Admin Reason: IV Running Labs CBC & Chem 7: 02/17/21 05:30 02/17/21 05:30 Labs: Laboratory Results - last 24 hr 02/17/21 02/17/21 05:30 05:30 MCV 84.5 MCH 29.5 MCHC 34.9 RDW 13.3 Plt Count 157 L MPV 11.6 Absolute Nucleated RBC 0.000 Nucleated RBC % (auto) 0.0 Anion Gap 11 L Estim Creat Clear Calc 58.7 Estimated GFR > 60 Fasting Glucose 119 H Calcium 8.6 Total Bilirubin 8.4 H Direct Bilirubin 4.4 H AST 50 H D ALT 89 H Alkaline Phosphatase 91 D Total Protein 5.9 L D Albumin 3.3 L D Assessment and Plan (1) Choledocholithiasis: Status: Acute (2) Cholangitis: Status: Acute Assessment and Plan: 75-year-old male with no significant past medical history presents to the hospital with complaints of abdominal pain found to have choledocholithiasis # Choledocholithiasis / acute cholangitis abdominal pain is improving, no recurrent fevers, WBC normalized, total bili and LFTs are trending down Patient is tolerating diet. status post ERCP 02/16/21 it showed multiple cbd stones,Purulent draiinage c/w cholangitis ,sphnicterotomy done, multiple stones and sludge removed with balloons. large 14-18 mm stone could not be removed,10F 7 cm stent placed. Case discussed with Dr. Bridges he spoke with Dr. Webber from [facility] he recommend outpatient repeat follow-up for sphincterotomy /stone removal in 1 month Will continue current antibiotics IV Flagyl and ceftriaxone, monitor LFTs and if remains stable will discharge home on by mouth Augmentin # DVT prophylaxis:? SCDs Quality Stroke Does the patient have a stroke diagnosis?: No VTE Prior VTE?: No VTE Risk Level:: Medical - moderate - high VTE Device Contraindication: N/A - Device Ordered VTE Drug Contraindication: Treatment Not Indicated
--- NOTE | 2021-02-17 14:41 | PM.GIPN ---
Subjective Subjective Date of Service: 02/17/21 Interval History: some bloating after eating, otherwise tolerating diet urine is still dark Critical Care Time (minutes): 0 Physical Exam Vital Signs: Vital Signs: Last Vital Signs Temp 97.1 F 02/17/21 11:58 Pulse 56 02/17/21 11:58 Resp 18 02/17/21 11:58 BP 165/71 H 02/17/21 11:58 Pulse Ox 98 02/17/21 11:58 Body Mass Index 25.1 GI: Other: abdomen is soft and nontender Skin: Other: mild icterus Objective Data Labs CBC & Chem 7: 02/17/21 05:30 02/17/21 05:30 Procedures Date of Service Date of Service: 02/17/21 Progress Note: A&P Assessment and plan (1) Choledocholithiasis: Status: Acute Assessment and Plan: doing well s/p stone extraction and stent placement. cholangitis is responding to antibiotic treatment. 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 Fall Risk Details Current Medications: Current Medications Acetaminophen (Acetaminophen 325 Mg Tablet) 650 mg PO Q6H PRN PRN Reason: Pain, Mild (Pain Scale 1-3) Docusate Sodium (Docusate Sodium 100 Mg Capsule) 100 mg PO DAILY PRN PRN Reason: Constipation Fentanyl (Fentanyl Citrate/Pf 100 Mcg/2 Ml Vial) 50 mcg IVPUSH Q5M PRN; Protocol PRN Reason: Pain, Severe (Pain Scale 7-10) Ceftriaxone Sodium 1 gm/ (Sodium Chloride) 50 mls @ 100 mls/hr IV Q24H [facility] Last Infusion: 02/16/21 23:04 Dose: Infused Documented by: Metronidazole (Flagyl) 500 mg in 100 mls @ 100 mls/hr IV Q8H [facility] Last Infusion: 02/17/21 07:01 Dose: Infused Documented by: Lactated Ringer's (Lr) 1,000 mls @ 80 mls/hr IVCONT .[id number] [facility] Last Admin: 02/17/21 12:49 Dose: 80 mls/hr Documented by: Promethazine HCl 12.5 mg/ (Sodium Chloride) 50.5 mls @ 202 mls/hr IV ONCE PRN PRN Reason: Nausea and Vomiting Morphine Sulfate (Morphine Sulfate 4 Mg/Ml Cartridge) 4 mg IVPUSH Q4H PRN; Protocol PRN Reason: Pain, Severe (Pain Scale 7-10) Ondansetron HCl (Ondansetron Hcl 4 Mg/2 Ml Vial) 4 mg IVPUSH Q8H PRN PRN Reason: Nausea and Vomiting Oxycodone HCl (Oxycodone Hcl Immed Release 5 Mg Tablet) 5 mg PO Q4H PRN PRN Reason: Pain, Severe (Pain Scale 7-10) Sodium Chloride (0.9 % Sodium Chloride Flush 3 Ml Syringe) 3 ml IVFLUSH [facility] Last Admin: 02/17/21 07:14 Dose: Not Given Documented by: Time Spent With Patient Time: Total time spent is greater than 50% in coordination of care (as documented) at patient's floor/unit and/or counseling patient: Time with patient: 15 - 24 minutes Quality Stroke Does the patient have a stroke diagnosis?: No VTE Prior VTE?: No VTE Risk Level:: Medical - moderate - high VTE Device Contraindication: N/A - Device Ordered VTE Drug Contraindication: Treatment Not Indicated
[2021-02-17 15:29] VITALS: BP 127/66; PULSE 53; RESP 17; TEMP 36.6; O2SAT 98
[2021-02-17 19:20] VITALS: BP 157/67; PULSE 58; RESP 15; TEMP 37.1; O2SAT 96
[2021-02-17] MEDS: oxyCODONE HCl Immed Release 5 MG TABLET PO (20:32)
[2021-02-17] MEDS: cefTRIAXone sodium 1 GM in 0.9 % Sodium Chloride 50 ML IV (21:19)
[2021-02-18] VITALS: BP 159/66; PULSE 54; RESP 15; TEMP 36.8; O2SAT 98
[2021-02-18] MEDS: Lactated Ringers 1,000 ML 80 ML IVCONT (03:18)
[2021-02-18 04:00] VITALS: BP 141/68; PULSE 56; RESP 15; TEMP 37.6; O2SAT 96
[2021-02-18 05:04] LABS: Alanine Aminotransferase 69 U/L (0-40); Albumin Level 3.2 g/dL (3.5-5.0); Alkaline Phosphatase 92 U/L (39-117); Aspartate Amino Transferase 39 U/L (5-37); Bilirubin Direct 3.7 mg/dL (0.0-0.5); Bilirubin Total 5.9 mg/dL (0.0-1.0); Total Protein 5.7 g/dL (6.5-8.0)
[2021-02-18 05:20] LABS: HBsAGNum1 0.15 S/CO (0.00-0.99); Hepatitis B Surface Antigen Negative (Negative); ~HepC Num1 0.15 S/CO (0.00-0.79); ~Hepatitis C Antibody Nonreactive (Nonreactive)
[2021-02-18 05:21] LABS: HBS Num1 0.18 mIU/mL (0-7.99); HBc Num1 0.11 S/CO (0.00-0.79); Hepatitis B Core Antibody Nonreactive (Nonreactive); ~Hepatitis B Surface Antibody NONREACTIVE (Nonreactive)
[2021-02-18] MEDS: metroNIDAZOLE/NS 500 MG/100 ML PIGGYBACK 100 MG IV (05:46)
[2021-02-18 07:53] VITALS: BP 146/96; PULSE 59; RESP 17; TEMP 37.1; O2SAT 95
[2021-02-18 08:17] LABS: Lipase 93 U/L (8-78)
[2021-02-18] MEDS: Acetaminophen 325 MG TABLET 650 MG PO (08:26)
[2021-02-18 09:00] VITALS: O2SAT 97
--- NOTE | 2021-02-18 12:00 | MHC.CM.PN ---
PT DISCHARGING HOME SELF-CARE, PT'S DTR WILL TRANSPORT
--- NOTE | 2021-02-18 14:05 | PM.GIPN ---
Subjective Subjective Date of Service: 02/18/21 Interval History: bloating is better Critical Care Time (minutes): 0 Physical Exam Vital Signs: Vital Signs: Last Vital Signs Temp 98.7 F 02/18/21 07:53 Pulse 59 02/18/21 07:53 Resp 17 02/18/21 07:53 BP 146/96 H 02/18/21 07:53 Pulse Ox 97 02/18/21 09:00 Body Mass Index 25.1 Const: General: comfortable and no acute distress GI: Other: abdominal exam is benign Objective Data Labs CBC & Chem 7: 02/17/21 05:30 02/17/21 05:30 Labs: Laboratory Results - last 24 hr 02/18/21 02/18/21 04:16 04:16 Total Bilirubin 5.9 H Direct Bilirubin 3.7 H AST 39 H ALT 69 H Alkaline Phosphatase 92 Total Protein 5.7 L Albumin 3.2 L Lipase 93 H Hep Bs Antigen Negative Hep Bs Antibody NONREACTIVE Hep B Core Total Ab Nonreactive Hepatitis C Ab (EIA) Nonreactive Procedures Date of Service Date of Service: 02/18/21 Progress Note: A&P Assessment and plan (1) Choledocholithiasis: Status: Acute Assessment and Plan: stable for discharge outpatient lithotripsy to be arranged through Dr Ortiz discussed with patient and daughter all questions answered. Time Spent With Patient Time: Total time spent is greater than 50% in coordination of care (as documented) at patient's floor/unit and/or counseling patient: Time with patient: less than 15 minutes Quality Stroke Does the patient have a stroke diagnosis?: No VTE Prior VTE?: No VTE Risk Level:: Medical - moderate - high VTE Device Contraindication: N/A - Device Ordered VTE Drug Contraindication: Treatment Not Indicated
--- NOTE | 2021-02-18 16:44 | P.DS_ITS ---
DS: Providers Provider Date of Service: 02/18/21 Date of admission: 02/16/21 00:05 Primary care physician: Mik Pena MD Consults: 02/16/21 00:21 Consult to Gastroenterology Routine Consulting Provider: Blaze Varela Reason for consultation: choledecholithiasis Has provider been notified: Yes DS: Diagnosis Discharge Diagnosis (1) Choledocholithiasis: Status: Acute DS: Summary Hospital Course Hospital Course: History of presenting illness Chief Complaint: Abdominal pain 75-year-old male with no significant past medical history who presents to the hospital with complaints of abdominal pain that started about 1 day ago.? Patient reports that he was at home when he started having epigastric pain radiating to the right upper quadrant associated with nausea, pain is 8/10, constant, in worsens with eating and drinking food, improved with pain medication given in the ED.? associated with dark urine, jaundice. Patient denies any chest pain, no shortness of breath, no headache or change in vision, no palpitations.? No urinary symptoms and no lower extremity edema.? No weakness numbness or tingling. On arrival to the ED patient hemodynamically stable with no significant abnormal vitals except for a temp of 99.9? Labs are significant for WBC count of 11.4, total bili of 10.2, direct bili of 3.9, AST of 142, ALT of 176, alk-phos of 126, lipase of 230, UA negative.? COVID-[address] shows [id number] intrahepatic and extrahepatic biliary ductal dilatation to the level of the pancreas head.? There are several calcified intraluminal densities within the common bile duct suggesting choledocholithiasis.? Mild dilatation of the pancreatic duct at this level may be secondary to the calculus as well.? Diverticulosis with no diverticulitis. Hospital course ?75-year-old male with no significant past medical history presents to the hospital with complaints of abdominal pain found to have choledocholithiasis and acute cholangitis, patient underwent ERCP 02/16/21 it showed multiple cbd stones,Purulent drainage c/w cholangitis ,sphincterotomy done, multiple stones and sludge removed with balloons,large 14- 18 mm stone could not be removed,10F 7 cm stent placed. ?Patient treated with IV antibiotics, placed on diet that he is tolerating well, with no recurrent fevers, abdominal pain has resolved, LFTs trended down therefore patient is being discharged home on by mouth antibiotic, Patient followed closely by Dr. Bridges from Gastroenterology he spoke with Dr. Webber from [facility] he recommend outpatient repeat ERCP for sphincterotomy /stone and stent removal ?Will discharge patient home on Augmentin for 10 days. Time Spent with Patient Time attestation: Total time spent providing and/or coordinating discharge services: Discharge coordination time: Greater than 30 minutes Quality: Stroke Does the patient have a stroke diagnosis?: No Physical Exam Vital Signs: Vital Signs: Last Vital Signs Temp 98.7 F 02/18/21 07:53 Pulse 59 02/18/21 07:53 Resp 17 02/18/21 07:53 BP 146/96 H 02/18/21 07:53 Pulse Ox 97 02/18/21 09:00 Body Mass Index 25.1 General alert orie nted x3, no acute distress.? Neck? s upple no JVD. CVS? regular rate rhyt hm, Respiratory stef ngs clear to auscu ltation, no respir atory distress Gas trointestinal abdo men soft, no abdom inal tenderness, b owel sounds audibl e, no guarding , n o rigidity. Extrem ities no edema. Ne uro nonfocal , spe ech clear.? Hard o f hearing Skin no rash DS: Data Data Completed and Pending Labs on day of discharge: Laboratory Results - last 24 hr 02/18/21 02/18/21 04:16 04:16 Total Bilirubin 5.9 H Direct Bilirubin 3.7 H AST 39 H ALT 69 H Alkaline Phosphatase 92 Total Protein 5.7 L Albumin 3.2 L Lipase 93 H Hep Bs Antigen Negative Hep Bs Antibody NONREACTIVE Hep B Core Total Ab Nonreactive Hepatitis C Ab (EIA) Nonreactive Discharge Plan Discharge Patient Disposition: Home, Self-Care Discharge Diagnosis: Cholangitis Choledocholithiasis Referrals: Mik Pena MD [Primary Care Provider] - 1 Week Discharge Medications: New amoxicillin-pot clavulanate [Augmentin] 875-125 mg tablet 1 tab PO BID Qty: 20 RF: 0 Discharge Orders: Discharge Order (Routine); Ordered 02/18/21 Ordered By: Apryl Burnett Diet: low fat, low cholesterol Activity on Discharge: As tolerated Stand Alone Forms: Patient Portal Discharge page Care Plan Goals: Take antibiotics follow low fat diet, return to check in Er with any worsening abdominal pain, fevers, nausea or vomiting, or unable to keep food down Health Concerns: Take medications as prescribed Plan of Treatment: outpatient follow with pcp in 7-10 days, outpatient follow-up with Gastroenterology as planned Assessment: as tolerated Discharge Date/Time: 02/18/21 12:31
[2021-02-19 04:23] LABS: Hepatitis A Antibody IgM 0.58 Index (0-0.79); ~Hepatitis A Antibody IgM Nonreactive (Nonreactive)
== END 2021-02-18 12:31 | disposition home or self-care (01) | DRG 446 ==
LOC: HO.ED 23:30 → HO.EDOVER 02-16 00:11 → HO.SSSA 02-16 16:52 → HO.S3 02-16 17:52
PROVIDERS: Internal Medicine; Internal Medicine Gastroenterology; Nurse Practitioner Family; Admitting Provider Internal Medicine; Emergency Provider Internal Medicine; PCP Family Medicine; Visit Provider Hospitalist
PROC: 0FC98ZZ Extirpation of Matter from Common Bile Duct, Via Natural or Artificial Opening Endoscopic (ICD-10-PCS; CPT 43260; principal; 2021-02-16 10:30)
DX: K80.32 Calculus of bile duct with acute cholangitis without obstruction (principal); Z23 Encounter for immunization; Z20.822 Contact with and (suspected) exposure to COVID-19; Z87.891 Personal history of nicotine dependence
CPT/HCPCS: 36415; 74177; 80048; 80076; 81001; 83690; 84484; 85025; 85027; 86704; 86706; 86709; 86803; 87340; 87635; 90686; 93005; 96361; 96374; 96375; 96376; 99285; 99291; C1769; C2617; J0330; J0696; J1100; J2250; J2405; J3010; Q9967

== ENCOUNTER 2023-06-07 10:55 | Outpatient (AMB) | payer MEDICARE, SELFPAY ==
[2023-06-07 12:20] VITALS: BP 122/82; PULSE 66; TEMP 36.7; O2SAT 98; BMI 25.8
--- NOTE | 2023-06-07 12:20 | MHC.OFFWIV ---
Intake Vital Signs 06/07/23 12:20 Height 5 ft 9 in Weight 175 lb BMI 25.8 BP 122/82 Blood Pressure Location Lt brachial Position Sitting Pulse 66 Pulse Source Pulse Oximeter Temp 98.0 F Temp Source Oral Pulse Oximetry (%) 98 Oxygen Delivery Method Room Air Intake Visit Reasons: EP ears blocked after a cold masked in lobby Intake Note: pt is here for c.o bilateral ear blockage since 2 days ago Patient Tobacco Use Status: Former Tobacco user Quit Date: 50 years ago Allergies No Known Allergies Allergy (Verified 06/07/23 12:57) Medication List - Last Reconciled 06/07/23 by Flor Ferrara, RUBIA- No Known Home Meds Do you need a note to return to daycare/school/sports/work: No HPI HPI Comments History of Present Illness Details Sick with URI for 1 month Cont to cough & have chest congestion 2 days ago, noticed decreased hearing bilat. 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 Denies fever, chills, chest pain, drainage to ears. No at home remedies PFSH Medical History No pertinent past medical history Surgical History History of cholecystectomy Social History Household Members: None Housing: House Do you presently have visiting nurse or other home services: No Patient Tobacco Use Status: Former Tobacco user Quit Date: 50 years ago service: No Current occupational status: employed Review of Systems Const All systems reviewed & are unremarkable except as noted in HPI and below Physical Exam Vital Signs: Last Vital Signs Temp 98.0 F 06/07/23 12:20 Pulse 66 06/07/23 12:20 BP 122/82 06/07/23 12:20 Pulse Ox 98 06/07/23 12:20 Oxygen Delivery Method Room Air 06/07/23 12:20 BMI result Body Mass Index 25.8 Const Other: awake alert NAD TM intact, with effusions bilat L>R RLL w/ coarse rhonci 2/6 systolic murmur RRR Assessment & Plan Assessment & Plan (1) Abnormal lung sounds: Code(s): R09.89 - Other specified symptoms and signs involving the circulatory and respiratory systems Plan: Total time spent caring for the patient today was 37 minutes. This includes time spent before the visit reviewing the chart, time spent during the visit, and time spent after the visit on documentation (2) Eustachian tube dysfunction: Code(s): H69.90 - Unspecified Eustachian tube disorder, unspecified ear Qualifiers: Laterality: bilateral Qualified Code(s): H69.93 - Unspecified Eustachian tube disorder, bilateral (3) Cough: Code(s): R05.9 - Cough, unspecified Qualifiers: Cough type: acute Qualified Code(s): R05.1 - Acute cough Plan: . Plan Given exam today will tx empirically for PNA w/ augmentin, renally dosed based on age flonase to help ETD Xray today to be called only if + If + recommend f/u with PCP in 1 month to ensure resolution Orders: Orders XR chest 2V Today R05.9 - Cough, unspecified, R09.89 - Other specified symptoms and signs involving the circulatory and respiratory systems Medications: New amoxicillin-pot clavulanate 500-125 mg 1 tab PO BID 7 days 14 tabs 0RF fluticasone propionate 50 mcg/actuation administer into each nostril 1 spray intranasal BID 30 days 16 grams 0RF Coding Level of Care Code Est Pt Level 4 (08658) Diagnoses Abnormal lung sounds R09.89 Dysfunction of both eustachian tubes H69.93 Laterality: bilateral Acute cough R05.1 Cough type: acute
== END 2023-06-07 13:17 | disposition home or self-care (01) ==
PROVIDERS: PCP Family Medicine; Visit Provider Nurse Practitioner Family
DX: R09.89 Other specified symptoms and signs involving the circulatory and respiratory systems (principal); H69.93 Unspecified Eustachian tube disorder, bilateral; R05.1 Acute cough
CPT/HCPCS: 99214

== ENCOUNTER 2023-06-07 13:06 | Outpatient (REF) | payer MEDICARE, SELFPAY ==
--- NOTE | ~2023-06-07 | XR_ITS ---
EXAMINATION: XR CHEST CLINICAL INFORMATION: Cough COMPARISON: None available. TECHNIQUE: 2 views of the chest were obtained. FINDINGS: The cardiac and spinal contours are normal. The lungs are clear. No pleural effusion or pneumothorax. Bony structures are unremarkable. XR/XR chest 2V IMPRESSION: Unremarkable examination.
== END 2023-06-07 13:07 | disposition home or self-care (01) ==
LOC: HO.HMGCX 13:06
PROVIDERS: Visit Provider Nurse Practitioner Family
DX: R05.9 Cough, unspecified (principal); R09.89 Other specified symptoms and signs involving the circulatory and respiratory systems
CPT/HCPCS: 71046